=== PATIENT | male | born 1950 | race African-American/Black ===

== ENCOUNTER 2020-10-03 08:37 | Emergency (ER) | payer BC, MEDICARE ==
[2020-10-03] MEDS ORDERED: Iopamidol 370 76% 100 ML VIAL ONE (09:00)
[2020-10-03 09:27] LABS: ALT (SGPT) 31 U/L (8-55); AST (SGOT) 35 U/L (5-34); Albumin 3.9 g/dL (3.4-4.8); Alkaline Phosphatase 69 U/L (40-110); Anion Gap 16 mmol/L (10-20); BUN (Urea Nitrogen) 16 mg/dL (8.4-25.7); Calc. Creatinine Clearance 0 mL/min (70-130); Calcium 8.7 mg/dL (7.8-10.44); Carbon Dioxide 23 mmol/L (23-31); Chloride 104 mmol/L (98-107); Globulin 3.1 g/dL (2.4-3.5); Glucose 104 mg/dL (83-110); Lipase 49 U/L (8-78); Potassium 3.8 mmol/L (3.5-5.1); Sodium 139 mmol/L (136-145)
[2020-10-03] MEDS ORDERED: Acetaminophen 500 MG TAB ONE (09:27)
[2020-10-03 09:29] LABS: Hemoglobin 15.3 g/dL (14.0-18.0); Mean Corpuscular HGB CONC 32.1 g/dL (32.0-36.0); Mean Corpuscular Hemoglobin 29.8 pg (27.0-31.0); Mean Corpuscular Volume 92.8 fL (78.0-98.0); Mean Platelet Volume 9.1 fL (7.4-10.4); Platelet Count 138 thou/uL (130-400); Red Blood Cell (RBC) Count 5.14 mill/uL (4.70-6.10); White Blood Cell (WBC) Count 21.6 thou/uL (4.8-10.8)
[2020-10-03 09:41] LABS: Bilirubin Small (Negative); Blood, Urine Moderate (Negative); Clarity Clear (Clear); Glucose, Urine (Dipstick) Negative (Negative); Ketone, Urine Trace mg/dL (Negative); Leukocyte Negative (Negative); Nitrite Negative (Negative); Protein, Urine (Dipstick) > or equal to 300 mg/dL (Neg-Trace)
[2020-10-03 09:50] LABS: Specific Gravity, Urine Greater/Equal 1.030 (1.005-1.030)
[2020-10-03 09:51] LABS: Bacteria/HPF Rare-Few HPF (None Seen); RBC/HPF 0-3 HPF (0-3); Squamous Epithelial 0-3 HPF (0-3); WBC/HPF None Seen HPF (0-3)
[2020-10-03 10:10] LABS: Band 3 % (5-11); Lymphocytes 72 % (21-51); MDiff Complete? YES; Monocytes 2 % (0-10); Neutrophil 22 % (42-75); Platelet Morphology Comment Appears Adequate; RBC Morphology Normal; Reactive Lymphocytes 1 % (0-10)
--- NOTE | 2020-10-03 12:35 | CT ---
CT ABDOMEN WITH CONTRAST CT PELVIS WITH CONTRAST: DATE: 10/03/2020 HISTORY: 70-year-old male with lower abdominal pain COMPARISON: none TECHNIQUE: IV injection of iodinated contrast media: administered. Oral contrast media:Administered FINDINGS: Multiple small focal patchy peripheral infiltrates at the bases of bilateral lower lobes, right great er than left. No pleural effusion. No small bowel dilation, pneumoperitoneum, ascites, or colonic diverticulitis. Medialization of descending colon. Atherosclerosis without aneurysm of abdominal aorta. Large number of tiny gallstones in the dependent portion of gallbladder lumen. No excessive gallbladder luminal distention, mural thickening, or pericholecystic fluid Approximate 4.7 cm exophytic cyst from upper pole of left kidney. A few other smaller cysts. Additional tiny focal hypodensities in bilateral renal parenchyma, too small to characterize, but at least most of which represent tiny cysts. Small enhancing nodule adjacent to left renal upper pole is consistent with a splenule. Otherwise normal spleen, pancreas, adrenals, appendix, and decompresse d urinary bladder. IMPRESSION: 1) evidence for at least mild COVID-19 pneumonia 2) cholelithiasis without evidence of acute cholecystitis. 3) no acute findings within abdominal cavity or pelvic cavity.
[2020-10-04 21:19] LABS: SARS-CoV-2 MS2 Positive; SARS-CoV-2 N Gene Positive; SARS-CoV-2 S Gene Positive; SARS-CoV-2 by NAA DETECTED (NotDetected); SARS-CoV-2 orf1ab Positive
== END 2020-10-03 13:15 | disposition home or self-care (01) ==
LOC: NAV ERS 08:37
DX: U07.1 COVID-19 (principal); J12.82 Pneumonia due to coronavirus disease 2019; K80.20 Calculus of gallbladder without cholecystitis without obstruction; N28.1 Cyst of kidney, acquired; I10 Essential (primary) hypertension; E78.5 Hyperlipidemia, unspecified; Z79.82 Long term (current) use of aspirin; Z79.899 Other long term (current) drug therapy
CPT/HCPCS: 74177; 80053; 82274; 83690; 85025; U0003; 81003; 81015; 87635; Q9967